=== PATIENT | female | born 1950 | race African-American/Black ===

== ENCOUNTER 2020-12-11 06:56 | Emergency (ER) | payer OTHER, BC ==
[2020-12-11 07:26] VITALS: TEMP 98.6; BMI 37.1
[2020-12-11] MEDS ORDERED: amLODIPine BESYLATE 5 MG TABLET (FP) PO ONE (07:35)
[2020-12-11 07:55] VITALS: BP 148/80; PULSE 74
[2020-12-11] MEDS ORDERED: cloNIDine HCL 0.1 MG TABLET PO ONE (08:36)
[2020-12-11] MEDS ORDERED: cloNIDine HCL 0.1 MG TABLET ONE (08:45)
== END 2020-12-11 10:43 | disposition home or self-care (01) ==
LOC: JER 06:56
DX: I10 Essential (primary) hypertension (principal)
CPT/HCPCS: 99284-25; J0735

== ENCOUNTER 2020-12-11 22:02 | Emergency (ER) | payer BC, OTHER ==
[2020-12-11 22:08] VITALS: TEMP 98.9
[2020-12-11 23:07] VITALS: PULSE 82
[2020-12-11 23:13] VITALS: BP 152/94
== END 2020-12-11 23:19 | disposition home or self-care (01) ==
LOC: JER 22:02
DX: I10 Essential (primary) hypertension (principal)
CPT/HCPCS: 99283-25